=== PATIENT | male | born 1970 | race Hispanic/Latino ===

== ENCOUNTER 2016-06-13 20:34 | Emergency (ER) | payer OTHER ==
[~2016-06-13] VITALS: Ht 170.2 cm; Wt 157.8 kg
[~2016-06-13 20:34] MED LIST: PREDNISONE 20MG20 MG PO
[2016-06-13 20:42] VITALS: BP 129/91
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
== END 2016-06-13 22:13 ==
LOC: ERH 20:34
DX: S39.012A Strain of muscle, fascia and tendon of lower back, initial encounter (principal); X58.XXXA Exposure to other specified factors, initial encounter

== ENCOUNTER 2016-06-14 23:20 | Emergency (ER) | payer OTHER ==
[~2016-06-14] VITALS: Ht 167.6 cm; Wt 158.8 kg
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
[2016-06-15 02:19] VITALS: BP 134/88
== END 2016-06-15 02:20 ==
LOC: ERH 23:20
DX: S93.401A Sprain of unspecified ligament of right ankle, initial encounter (principal); V49.40XA Driver injured in collision with unspecified motor vehicles in traffic accident, initial encounter
CPT/HCPCS: 73030-RT; 73600-RT; J1885